=== PATIENT | male | born 1955 | race Caucasian/White ===

== ENCOUNTER 2018-04-03 06:51 | Day surgery (SDC) | payer BC ==
[2018-04-03 07:15] VITALS: BMI 23.9
[2018-04-03] MEDS ORDERED: Propofol 10 mg/ml Inj (20 ML) ONE ×2 (08:14→08:33)
[2018-04-03] MEDS ORDERED: Sodium Chloride 0.9% 1,000 ML IV SCH (09:00)
[2018-04-03 09:37] VITALS: BP 137/81; PULSE 58; RESP 16; TEMP 97.7; O2SAT 98
== END 2018-04-03 10:01 | disposition home or self-care (01) ==
LOC: ENDO 06:51
PROVIDERS: ATTEND Specialist
DX: Z12.11 Encounter for screening for malignant neoplasm of colon (principal); K63.3 Ulcer of intestine; K64.8 Other hemorrhoids; Z86.010 Personal history of colon polyps; E03.9 Hypothyroidism, unspecified; E78.5 Hyperlipidemia, unspecified; R73.03 Prediabetes
CPT/HCPCS: 45380; 88305; J2001; J2704; J7030; J7040